=== PATIENT | male | born 1975 | race Two or more races ===

== ENCOUNTER 2019-12-16 12:00 | Outpatient (CLI) | payer BC | END 2019-12-16 23:59 | disposition home or self-care (01) | LOC: ER 12:00 | PROVIDERS: ATTEND Internal Medicine Hematology & Oncology | DX: Z45.2 Encounter for adjustment and management of vascular access device (principal); C95.90 Leukemia, unspecified not having achieved remission | CPT/HCPCS: 36569; 71045; C1751 ==

== ENCOUNTER 2020-01-20 14:55 | Outpatient (CLI) | payer BC | END 2020-01-20 23:59 | disposition home or self-care (01) | LOC: ER 14:55 | PROVIDERS: ATTEND Internal Medicine Hematology & Oncology | DX: Z45.2 Encounter for adjustment and management of vascular access device (principal); C95.90 Leukemia, unspecified not having achieved remission | CPT/HCPCS: 36569; 71045; C1751; C1769 ==